=== PATIENT | male | born 1970 | race Caucasian/White ===

== ENCOUNTER 2025-07-15 22:44 | Emergency (ER) | payer MEDICAID, SELFPAY ==
[2025-07-15 22:45] VITALS: BP 142/104; PULSE 101; TEMP 36.8; O2SAT 97; BMI 48.3
[2025-07-15 23:03] VITALS: BP 149/88
--- NOTE | 2025-07-15 23:11 | ECG_ITS ---
[facility] Test Date: 2025-07-15 Pat Name: HIMA TEJADA Department: Room: - Gender: Male System Support Analyst: : 1970 Requested By: [id number] Order Number: [id number] Reading MD: LISA CABALLERO M.D. Measurements Intervals [place] Rate: 91 P: 72 [place]: 180 QRS: 90 QRSD: 84 T: 54 QT: 360 QTc: 409 Interpretive Statements 1100 Sinus rhythm 9110 normal ECG No previous ECG available for comparison Electronically Signed On 07-17-2025 7:29:00 EDT by LISA CABALLERO M.D.
--- NOTE | 2025-07-15 23:14 | ED.GENADUL1 ---
HPI HPI - General Adult General Chief complaint: Recheck/Abnormal Lab/Rx Stated complaint: SUGAR IS HIGH Time Seen by Provider: 07/15/25 22:52 Source: patient Mode of arrival: Wheelchair Limitations: no limitations History of Present Illness HPI narrative: This 54-year-old male with a history of type 2 diabetes who was recently started on insulin and is on Trulicity and metformin is brought to emergency department by his friend. The patient states that his sugar was high at home so he took 14 units of insulin and then felt funny. He states he felt dizzy and weak. His sugar then started to decrease and he is now feeling better. He states he only ate 2 oranges today. He states he is afraid to eat anything because his sugar is running in the 300s to 400s despite what he eats. Upon arrival to the hospital his friend requested assistance to get him out of the car because of his weakness. This has since resolved. He denies any chest pain or shortness of breath. He is not having any nausea or vomiting. He is urinating normally. The patient states he has not met with a diabetic counselor or nutrition counselor and does not know how to manage his diabetes. He has been on metformin for many years and on Trulicity for the past several months and was recently started on insulin. His physician is at [facility]. Related Data Home Medications ?Medication ?Instructions ?Recorded ?Confirmed atorvastatin 80 mg tablet 80 mg PO DAILY 07/15/25 07/15/25 bictegravir 50 mg-emtricitabine 1 tab PO DAILY 07/15/25 07/15/25 200 mg-tenofovir alafenam 25 mg tablet (Biktarvy) bupropion HCl 300 mg 24 hr tablet, 300 mg PO DAILY 07/15/25 07/15/25 extended release dapagliflozin propanediol 10 mg 10 mg PO DAILY 07/15/25 07/15/25 tablet (Farxiga) dulaglutide 4.5 mg/0.5 mL 4.5 mg subcut QWEEK 07/15/25 07/15/25 subcutaneous pen injector (Trulicity) escitalopram oxalate 10 mg tablet 10 mg PO DAILY 07/15/25 07/15/25 fenofibrate 150 mg capsule 150 mg PO DAILY 07/15/25 07/15/25 gabapentin 300 mg capsule 300 mg PO TID 07/15/25 07/15/25 icosapent ethyl 1 gram capsule 2 g PO BID 07/15/25 07/15/25 insulin aspart U-100 100 unit/mL 7 unit subcut TID 07/15/25 07/15/25 subcutaneous solution insulin glargine 100 unit/mL (3 24 unit subcut BID 07/15/25 07/15/25 mL) subcutaneous pen (Basaglar KwikPen U-100 Insulin) lisinopril 2.5 mg tablet 2.5 mg PO DAILY 07/15/25 07/15/25 loratadine 10 mg tablet 10 mg PO DAILY 07/15/25 07/15/25 (Allerclear) metformin 500 mg tablet,extended 500 mg PO BID 07/15/25 07/15/25 release 24 hr pantoprazole 40 mg tablet,delayed 40 mg PO DAILY 07/15/25 07/15/25 release quetiapine 100 mg tablet 100 mg PO BID 07/15/25 07/15/25 Allergies Allergy/AdvReac Type Severity Reaction Status Date / Time sulfamethoxazole (From Allergy Mild Rash Verified 07/15/25 22:55 Bactrim) trimethoprim (From Bactrim) Allergy Mild Rash Verified 07/15/25 22:55 Review of Systems ROS Status of ROS 10 or more systems reviewed and unremarkable except as noted in history and below PFSH PFSH Social History Little interest or pleasure in doing things: not at all Feeling down, depressed, or hopeless: not at all Exam Narrative Exam Narrative: Vital signs and Nursing Notes reviewed: Patient is afebrile, mildly tachycardic with a pulse of 101, blood pressure is elevated 149/88, he is not hypoxic with pulse ox of 97% on room air General: Awake, alert, oriented, obese male, no acute distress, lying comfortably on the stretcher HEENT: Normocephalic atraumatic, mucous membranes are pink and dry, no swelling of the tongue, uvula or pharyngeal soft tissues Neck: Supple, no meningeal signs, no anterior or posterior cervical lymphadenopathy Chest: Lungs are clear to auscultation with good air entry, there is no wheezing rhonchi or rales appreciated no accessory muscle use, patient is speaking in complete sentences-no chest wall tenderness to palpation CVS: Regular rate and rhythm S1-S2, no murmurs rubs or gallops, pulses are brisk and equal bilaterally ABD: Obese, soft, nondistended, nontender, no rebound guarding or rigidity, bowel sounds are normal, no pulsatile masses appreciated Extremities: Moving all extremities, no lower extremity tenderness or swelling noted, negative Homans' sign, pulses are brisk and equal bilaterally Skin: Normal in appearance without rash,pallor, petechiae or purpura Neuro: No focal deficits Constitutional Vital Signs, click to edit/add: Last Vital Signs Temp 98.2 F 07/15/25 22:45 Pulse 88 07/15/25 23:23 Resp 16 07/15/25 22:45 BP 149/88 H 07/15/25 23:03 Pulse Ox 97 07/15/25 22:45 O2 Del Method Room Air 07/15/25 22:45 Course Vital Signs Vital signs: Vital Signs Temperature 98.2 F 07/15/25 22:45 Pulse Rate 101 H 07/15/25 22:45 Respiratory Rate 16 07/15/25 22:45 Blood Pressure 142/104 H 07/15/25 22:45 Pulse Oximetry 97 07/15/25 22:45 Oxygen Delivery Method Room Air 07/15/25 22:45 Temperature 98.2 F 07/15/25 22:45 Pulse Rate 88 07/15/25 23:23 Respiratory Rate 16 07/15/25 22:45 Blood Pressure 149/88 H 07/15/25 23:03 Pulse Oximetry 97 07/15/25 22:45 Oxygen Delivery Method Room Air 07/15/25 22:45 Medical Decision Making MDM Narrative Medical decision making narrative: This 54-year-old male with a history of type 2 diabetes who was recently also placed on insulin and is having trouble controlling his sugar and sees a physician at [facility] presents for evaluation of elevated glucose earlier in the evening for which he took 14 units of insulin which caused his sugar to drop making him feel weak. His friend brought him to the emergency department and requested assistance to bring him back to a room. He was taken back to room 1 and evaluated. An Accu-Chek at that time was in the 330s. The patient admits that he does not know how to manage his insulin very well and yesterday only ate 2 oranges throughout the day. His vital signs are stable with mild tachycardia upon arrival. His neuroexam is normal. His mucous membranes are dry and he requested water to drink. He was given ice water and a liter of normal saline. EKG done upon arrival is a sinus rhythm at 90 bpm with no acute findings. He has a mildly elevated white count at 15.1 with a stable hemoglobin. Electrolytes are normal with an elevated glucose of 359. He has a normal CO2 of 22. Acetone is negative, BUN and creatinine are normal. Troponin is normal. Remains alert and stable in the emergency department. I had a lengthy discussion with him about what is considered good food for a diabetic including protein, complex carbohydrates, vegetables and avoiding desserts, donuts, sweets etc. He does not seem particularly interested in this conversation but did agree to asked to meet with a diabetic counselor at his next appointment which is later this month. He will be discharged home with his friend who is driving him. Lab Data Lab results reviewed: Yes I reviewed the patient's lab results Labs: Lab Results 07/15/25 07/15/25 Range/Units 22:52 22:53 WBC 15.1 H (4.0-11.0) 10^3/uL RBC 5.21 (4.70-6.10) 10^6/uL Hgb 17.0 (14.0-18.0) g/dL Hct 47.9 (42.0-54.0) % MCV 91.9 (80.0-94.0) fL MCH 32.6 (25.9-34.0) pg MCHC 35.5 H (29.9-35.2) g/dL RDW 12.2 (11.0-15.0) % Plt Count 253 (150-450) 10^3/uL MPV 10.2 (9.5-13.5) fL Seg Neuts % (Manual) 53.0 (43.0-75.0) Lymphocytes % (Manual) 20.0 L (20.5-60.0) % Atypical Lymphs % (Man) 17.0 % Monocytes % (Manual) 9.0 (1.7-12.0) % Eosinophils % (Manual) 0.0 L (0.9-7.0) % Basophils % (Manual) 0.0 L (0.2-2.0) % Myelocytes % 1.0 Neutrophils # (Manual) 8.00 H (1.4-6.5) 10^3/uL Lymphocytes # (Manual) 3.02 (1.20-3.80) 10^3/uL Abs Atypical Lymphs Man 2.56 Monocytes # (Manual) 1.35 H (0.30-0.80) 10^3/uL Eosinophils # (Manual) 0.00 (0.00-0.70) 10^3/uL Basophils # (Manual) 0.00 (0.00-0.10) 10^3/uL Myelocytes # 0.15 Sodium 133 L (136-145) mmol/L Potassium 3.7 (3.5-5.1) mmol/L Chloride 99 (98-107) mmol/L Carbon Dioxide 22.1 (21.0-32.0) mmol/L Anion Gap 15.6 BUN 13.0 (7.0-18.0) mg/dL Creatinine 1.09 (0.70-1.30) mg/dL Est GFR ( Amer) >60 (>=60 mL/min/1.73m^2) Est GFR (Non-Af Amer) >60 (>=60 mL/min/1.73m^2) BUN/Creatinine Ratio 11.9 Glucose 359 H (74-106) mg/dL Calcium 9.3 (8.5-10.1) mg/dL Total Bilirubin 0.6 (0.2-1.0) mg/dL AST 88 H (15-37) U/L ALT 101 H (16-63) U/L Alkaline Phosphatase 97 (46-116) U/L Troponin I High Sens 6.6 (4.0-76.1) pg/mL Total Protein 8.5 H (6.4-8.2) g/dL Albumin 3.7 (3.4-5.0) g/dL Globulin 4.8 g/dL Albumin/Globulin Ratio 0.8 Acetone, Qual Negative (NEGATIVE) POC Glucose 339 H (74-106) mg/dL ECG Data Attestation: I personally reviewed and interpreted this ECG as follows: (Sinus rhythm at 90 bpm, normal axis, normal intervals, no acute ST segment elevation or T wave inversion) Discharge Plan Discharge Chief Complaint: Recheck/Abnormal Lab/Rx Clinical Impression: Hyperglycemia due to diabetes mellitus Patient Disposition: Home, Self-Care Time of Disposition Decision: 23:48 Condition: Good Prescriptions / Home Meds: No Action atorvastatin 80 mg tablet 80 mg PO DAILY Trulicity 4.5 mg/0.5 mL pen injector 4.5 mg subcut QWEEK metformin 500 mg tablet extended release 24 hr 500 mg PO BID lisinopril 2.5 mg tablet 2.5 mg PO DAILY pantoprazole 40 mg tablet,delayed release (DR/EC) 40 mg PO DAILY gabapentin 300 mg capsule 300 mg PO TID insulin glargine [Basaglar KwikPen U-100 Insulin] 100 unit/mL (3 mL) insulin pen 24 unit subcut BID insulin aspart U-100 100 unit/mL solution 7 unit subcut TID icosapent ethyl 1 gram capsule 2 g PO BID dapagliflozin propanediol [Farxiga] 10 mg tablet 10 mg PO DAILY fenofibrate 150 mg capsule 150 mg PO DAILY bupropion HCl 300 mg tablet extended release 24 hr 300 mg PO DAILY escitalopram oxalate 10 mg tablet 10 mg PO DAILY quetiapine 100 mg tablet 100 mg PO BID Biktarvy 50-200-25 mg tablet 1 tab PO DAILY loratadine [Allerclear] 10 mg tablet 10 mg PO DAILY Print Language: Latvian Instructions: Basic Carbohydrate Counting (DC), Diabetic Hyperglycemia (ED), Diabetes and Exercise (ED)
[2025-07-15 23:15] LABS: Hematocrit 47.9 % (42.0-54.0); Hemoglobin 17.0 g/dL (14.0-18.0); Mean Corpuscular HGB Conc 35.5 g/dL (29.9-35.2); Mean Corpuscular Hemoglobin 32.6 pg (25.9-34.0); Mean Corpuscular Volume 91.9 fL (80.0-94.0); Platelet Count 253 10^3/uL (150-450); Red Blood Count 5.21 10^6/uL (4.70-6.10); White Blood Count 15.1 10^3/uL (4.0-11.0)
[2025-07-15] MEDS: 0.9 % SODIUM CHLORIDE 1,000 ML 1000 ML IV (23:21)
[2025-07-15 23:22] VITALS: PULSE 88
[2025-07-15 23:23] VITALS: PULSE 88
[2025-07-15 23:27] LABS: Alanine Aminotransferase 101 U/L (16-63); Albumin Globulin Ratio 0.8; Albumin Level 3.7 g/dL (3.4-5.0); Alkaline Phosphatase 97 U/L (46-116); Anion Gap 15.6; Aspartate Amino Transferase 88 U/L (15-37); Blood Urea Nitrogen 13.0 mg/dL (7.0-18.0); Calcium 9.3 mg/dL (8.5-10.1); Carbon Dioxide 22.1 mmol/L (21.0-32.0); Chloride 99 mmol/L (98-107); Estimated GFR (African America >60 (>=60 mL/min/1.73m^2); Estimated GFR (Non-African Ame >60 (>=60 mL/min/1.73m^2); Globulin 4.8 g/dL; Glucose 359 mg/dL (74-106); Potassium 3.7 mmol/L (3.5-5.1); Sodium 133 mmol/L (136-145); Total Protein 8.5 g/dL (6.4-8.2)
[2025-07-15 23:35] LABS: Atypical Lymphocytes % Manual 17.0 %; Atypical Lymphocytes Abs Man 2.56; Basophils Abs Manual 0.00 10^3/uL (0.00-0.10); Basophils Percent Manual 0.0 % (0.2-2.0); Eosinophils Absolute Manual 0.00 10^3/uL (0.00-0.70); Eosinophils Percent Manual 0.0 % (0.9-7.0); Lymphocytes Absolute Manual 3.02 10^3/uL (1.20-3.80); Lymphocytes Percent Manual 20.0 % (20.5-60.0); Monocytes Absolute Manual 1.35 10^3/uL (0.30-0.80); Monocytes Percent Manual 9.0 % (1.7-12.0); Myelocytes % Manual 1.0; Myelocytes Absolute Manual 0.15; Segmented Neut Absolute Manual 8.00 10^3/uL (1.4-6.5); Segmented Neutrophils % Manual 53.0 (43.0-75.0)
== END 2025-07-16 00:19 | disposition home or self-care (01) ==
PROVIDERS: Emergency Provider Emergency Medicine
DX: E11.65 Type 2 diabetes mellitus with hyperglycemia (principal); Z79.4 Long term (current) use of insulin; Z79.84 Long term (current) use of oral hypoglycemic drugs; Z79.85 Long-term (current) use of injectable non-insulin antidiabetic drugs
CPT/HCPCS: 36415; 80053; 82009; 82948; 84484; 85007; 85027; 93005; 96360; 99284